=== PATIENT | female | born 1955 | race Caucasian/White ===

== ENCOUNTER 2016-11-05 05:40 | Day surgery (SDC) | payer OTHER ==
--- NOTE | 2016-11-04 15:48 | GHP ---
[f rep st] PREOP HISTORY AND PHYSICAL DATE OF ADMISSION: 11/05/2016 CHIEF COMPLAINT: The patient presented to [facility] in September of 2016 with a chief complaint of a left bunion deformity. It had been progressive over time. She had been wearin g wider shoes, padding, decreased activity for years. Finally the 2nd toe was starting to cross over the great toe, causing significant pain and getting interdigital corn on the 2nd toe which is causin g a lot of pain also. At this point, she wanted it corrected on a permanent basis. She is a 61-year-old female, breast cancer survivor 12 years. Generally in excellent health. Outsid e of the surgery she takes levothyroxine for low thyroid and Cymbalta for a stomach problem. Outside of that she takes no other prescription medications. Takes a multivitamin. ALLERGIES: She has no known drug allergies. FAMILY HISTORY: Positive family history of bunion deformity on her maternal side. SOCIAL HISTORY: Denies ever using tobacco products. Alcohol use is less than 2 ounces per week. REVIEW OF SYSTEMS: In our discussion preoperatively she was alert and oriented. Not having any diff iculties with vision, hearing, nasal or throat problems. She denied any cardiac arrhythmias, chest p ain, shortness of breath, with extra exercise activity. She denies any GI, , neurologic, dermatolo gic, or other musculoskeletal problems. PHYSICAL EXAMINATION: The pulses show 2/4 on the dorsal and posterior tibial arteries. Capillary fl ow was less than 5 seconds to the digits x10. Minimal varicosities and no edema at either extremity noted preoperatively. Neurologic evaluation: Sharp dull, light touch, proprioception all intact and symmetric to the digit al level. She had normal temperature, texture, and turgor, and normal hair distribution of both lowe r extremities. No evidence of fungal infection on the nails. They are slightly ingrown on the hallu x nails with minimal dystrophic changes. Musculoskeletal evaluation showed 5/5 manual muscle testing to the extrinsic as well as intrinsic muscles of both extremities with no evidence of weakness or lo ss of strength. She has a minor splay foot deformity on the left side with a medially deviated 1st m etatarsal, laterally deviated hallux on the great toe. She had pain-free range of motion of the ankl e, subtalar, metatarsal joints on both feet. With dorsiflexion and plantar flexion of the left great toe joint there was pain and decreased range of motion in a corrected position. There was also crep itus noted. X-RAYS: Were taken, showed elevated intermetatarsal hallux abductus angles with spurring on oblique radiograph on the 1st metatarsal head. She does have intermetatarsal angles greater than 13 degrees, the hallux abductus angle is greater than 20 degrees. There appears to be some positional deformity on x-ray as well as structural deformity. ASSESSMENT: Hallux valgus deformity left. Progressive and severe. PLANNED PROCEDURE: Modified Santizo bunionectomy with osteotomy screw fixation and possible Nathaniel ost eotomy screw fixation. Preoperatively we discussed risks and complications, including residual pain, delayed healing. Marisela nt understood. Consent form was signed. She was given oral and written postoperative instructions, along with a prescription for Percocet 10/325 #30 one tab p.o. q. 4-6 hours p.r.n. postoperative roberta n as well as Phenergan 12.5 mg #30 one tab p.o. q 6 hours p.r.n. nausea postoperatively. She will be followed up x3 days postoperative at [facility] and all questions were answered preoperatively. She was given my cell phone number for 24 hour call postoperatively should she have any problems or questions. /[id number]/MODL
[2016-11-05] MEDS ORDERED: LIDOCAINE 1% 5 ML SDV ID PRN (06:18)
[2016-11-05] MEDS ORDERED: LR 1,000 ML IV ONE (06:18)
[2016-11-05] MEDS ORDERED: LIDOCAINE 1% 5 ML SDV ONE (06:21)
[2016-11-05] MEDS ORDERED: PROPOFOL 200 MG/20 ML VIAL ONE (06:53)
[2016-11-05] MEDS ORDERED: fentaNYL 100 MCG/2 ML INJ ONE (06:53)
[2016-11-05] MEDS ORDERED: PROPOFOL/EMULSION 500 MG/50 ML BOTTLE IV ONE (06:53)
[2016-11-05] MEDS ORDERED: LIDOCAINE 2% 5 ML SDV ONE (07:00)
[2016-11-05] MEDS ORDERED: MIDAZOLAM 2 MG/2 ML VIAL ONE (07:13)
[2016-11-05] MEDS ORDERED: BUPIVACAINE/EPI 0.25% 30 ML SDV ONE (07:20)
[2016-11-05] MEDS ORDERED: ceFAZolin 1 GM/5 ML SYR ONE (07:21)
[2016-11-05] MEDS ORDERED: DEXAMETHASONE 4 MG/ML VIAL ONE (07:43)
[2016-11-05] MEDS ORDERED: ONDANSETRON 4 MG/2 ML VIAL ONE (07:43)
[2016-11-05] MEDS ORDERED: CEFAZOLIN 1 GM/DEXTROSE/50 ML BAG IV ONE (09:01)
--- NOTE | 2016-11-05 10:45 | GOP ---
[f rep st] OPERATIVE REPORT DATE OF OPERATION: 11/05/2016 SURGEON: Gasper Butcher DPM ANESTHESIA: Kevin Ashley MD. MAC plus local infiltration of 10 cc of 0.25% Marcaine with epinep hrine in a Avila-type block. PREOPERATIVE DIAGNOSIS: Hallux valgus deformity, left foot. POSTOPERATIVE DIAGNOSIS: Hallux valgus deformity, left foot. PROCEDURE PERFORMED: FINDINGS: SPECIMENS: There were no specimens sent to pathology. ESTIMATED BLOOD LOSS: Less than 10 cc. DESCRIPTION OF PROCEDURE: The patient was taken to the operating room and placed in the supine posit ion. The first procedure was a modified Santizo bunionectomy with osteotomy and screw fixation. Aft er the Avila block and MAC anesthesia, the left lower extremity was elevated, prepped and draped in th e usual sterile OR fashion, achieving a sterile field about the entire distal aspect of the extremity . The foot was elevated and exsanguinated. Tourniquet was inflated to 250 mmHg. Total tourniquet t daniel was just under 1 hour. Attention was directed to the dorsal aspect of the left foot over the 1st metatarsophalangeal joint, where an approximately 3-4 inch linear incision was made medial to the extensor hallucis longus tendo n. Dissection was carried down to the level of the joint capsule, taking care to preserve the neurov ascular status to the area. Superficial vessels were clamped and bovied as necessary. The capsule w as entered via a single linear incision, reflected medially and laterally off the head of the metatar renée as well as the base of the proximal phalanx and the distal 3rd of the periosteum on the 1st metat arsal. The 1st intermetatarsal space was entered via sharp and blunt dissection. The adductor tendo n was identified at its attachment to the base of the proximal phalanx, and this was released sharply from its attachment. The toe could then be manually pulled over into a corrected position, very leda e position, and adequate lateral release was noted. Attention was then directed back to the 1st metatarsal head, where the medial eminence of the 1st met atarsal head was resected utilizing a bone saw. A 035 K wire was then placed through the metaphysis of the metatarsal, orienting the K wire such that it would slightly plantar flex the metatarsal upon osteotomy. A V or chevron-type osteotomy was then carried out with a slightly elongated dorsal wing. The metatarsal head was shifted laterally, impacted upon itself and held with the same 035 K wire a s temporary fixation. Utilizing AO technique, a single 2.4 mm OsteoMed screw was placed through the dorsal wing of the osteotomy and retrograded back into the metatarsal with excellent compression note d at the osteotomy. Redundant bone was removed medially. The K wire was removed from the operative site, and the area was rasped smooth medially and dorsally on the metatarsal. The great toe was take n through range of motion, deemed to be fairly anatomically aligned, but it was still pushing on the 2nd toe, so it was deemed necessary to do a secondary procedure, which was the Nathaniel osteotomy. The p eriosteum was reflected off the proximal phalanx medially and laterally. Again utilizing the bone sa w, an oblique wedge osteotomy was carried out with the apex proximal lateral on the proximal phalanx of the left great toe. This wedge of bone was removed from the operative site. A fracture reduction forceps was used to close the osteotomy, which swung the great toe away from the 2nd. Again utilizi ng AO technique, a single 2.4 mm OsteoMed screw was placed perpendicular to the osteotomy with excell ent compression noted. The great toe was taken through range of motion, deemed to be anatomically al igned, and it was no longer pushing on the 2nd toe. The area was flushed copiously with dilute antib iotic solution 3 different times. The sesamoidal apparatus was inspected multiple times for any dege neration or loose bone. There was a small loose bony fragment noted on the base of the proximal phal anx medially and this was removed. The great toe was taken through range of motion again and deemed to be anatomically aligned. Redundant capsule was then capsulotomized. The capsule was reapproximat ed utilizing 3-0 Vicryl in a simple interrupted suture. Periosteum was reapproximated utilizing 4-0 Vicryl in a simple interrupted suture. Subcu closure was carried out via 4-0 Vicryl in a horizontal mattress suture, and skin closure was carried out via 4-0 Prolene in a running subcuticular stitch. The incision was reinforced with Mastisol and half-inch Steri-Strips. Adaptic, sterile 4 x 4's, Klin g, and Coban were placed over the foot. Tourniquet was released and all digits immediately returned to a uniform pink color with normal capillary refill. The patient went into recovery in a satisfactory state with all vital signs stable. Her prognosis is excellent for rapid recovery. She will be followed up x3 days postop at [facility]. COMPLICATIONS: There were no complications. DRAINS: No drains were placed in the operative site. /[id number]/MODL
== END 2016-11-05 10:05 | disposition home or self-care (01) ==
LOC: FSGY 05:40
PROVIDERS: ATTEND Podiatrist
PROC: 0MQT0ZZ Repair Left Foot Bursa and Ligament, Open Approach (ICD-10-PCS; principal; 2016-11-05 07:15)
DX: M21.612 Bunion of left foot (principal); M20.12 Hallux valgus (acquired), left foot; E03.9 Hypothyroidism, unspecified; E78.2 Mixed hyperlipidemia; R53.83 Other fatigue; Z85.3 Personal history of malignant neoplasm of breast
CPT/HCPCS: 28292; C1769; C1713; J0690; J1100; J2250; J2405; J2704; J3010

== ENCOUNTER 2017-01-13 17:18 | Emergency (ER) | payer OTHER ==
[2017-01-13 17:31] VITALS: BP 136/82; PULSE 102; RESP 16; TEMP 100; O2SAT 95
--- NOTE | 2017-01-13 18:03 | UCPHY ---
H & P Time Seen by Provider: 01/13/17 17:50 Patient Type: Established HPI/ROS: This patient has a sore throat of moderate intensity associated with odynophagia started 2 days prior to arrival and is worsening. She reports some subjective fevers associated with this as well as slight myalgias. She also reports a mild cough. 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 ROS: No significant fatigue or other constitutional symptoms. HEENT: No ear pain. No facial pain. Pulmonary: No pleuritic pain. No shortness of breath. Cardiovascular: She reports no lower extremity swelling. GI: No vomiting and 7 point ROS is otherwise negative. 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 General: No acute distress HEENT: Nose: Clear discharge bilaterally. No sinus tenderness to percussion. Ears: External canals and tympanic membranes are clear with no erythema or abnormal findings bilaterally. Oropharynx: She has moderate uvular swelling and erythema. She has a slightly hoarse voice. No drooling or stridor. Eyes: Pupils equal and react to light. Extraocular motions are intact. Neck: Supple Lungs: Clear to auscultation bilaterally with no rales, rhonchi or wheeze. No respiratory distress. Cardiac: Regular rate and rhythm with no murmur gallop or rub Skin: No rash or pallor. Neuro: Alert with no focal deficits noted. Initial differential diagnosis: Uvulitis, strep pharyngitis, laryngitis, URI with cough Constitutional: Initial Vital Signs Temperature (C) 37.8 C 01/13/17 17:26 Heart Rate 102 H 01/13/17 17:26 Respiratory Rate 16 01/13/17 17:26 Blood Pressure 136/82 H 01/13/17 17:26 O2 Sat (%) 95 01/13/17 17:26 O2 Delivery Mode Room Air Allergies/Adverse Reactions: No Known Allergies Allergy (Verified 01/13/17 17:25) Home Medications: Medication Instructions Recorded Cymbalta 30 MG (*) 10/05/16 Flonase Nasal [place] 10/05/16 Levothyroxine 10/05/16 Amox Tr/K Clav (Augmentin) 500 mg PO TID #21 tab 01/13/17 [Augmentin 500/125 MG TAB (*)] Atorvastatin Calcium 01/13/17 Fluticasone Hfa 220 Mcg [Flovent 2 puffs IH DAILY #1 mdi 01/13/17 220 MCG Hfa MDI (*)] Gentamicin 0.3% [Gentak 0.3% Opht 2 drops OP TID #1 opht.btl 01/13/17 Drops] Medical Decision Making ED Course/Re-evaluation: Rapid strep is negative. Given patient's uvulitis will cover with a beta-lactam antibiotic. I counseled her regarding this. Also provided Flovent steroid inhaler for her laryngeal involvement. Discussion: Uvulitis without evidence of significant airway obstruction. I think that her mild laryngeal symptoms are consistent with her prior history of spasmodic laryngitis associated with URIs. - Data Points Laboratory Results: 01/13/17 01/13/17 Unknown 17:32 Group A Strep Screen NEGATIVE (NEGATIVE) Group A Strep DNA Pending Departure - Departure Disposition: Home, Routine, Self-Care Clinical Impression: Uvulitis, Cough Condition: Good Instructions: Uvulitis (ED) Additional Instructions: Diagnosis: 1. Uvulitis 2. Cough Plan: Humidifier Augmentin antibiotic Ibuprofen Tylenol for discomfort Restart your gentamicin eyedrops and take them for the next week. Start the Flovent steroid inhaler in addition if you have ongoing laryngeal symptoms beyond the next few days. Referrals: Emmett Horta MD [Primary Care Provider] - As per Instructions Prescriptions: Amox Tr/K Clav (Augmentin) [Augmentin 500/125 MG TAB (*)] 500 mg PO TID #21 tab Fluticasone Hfa 220 Mcg [Flovent 220 MCG Hfa MDI (*)] 2 puffs IH DAILY #1 mdi Gentamicin 0.3% [Gentak 0.3% Opht Drops] 2 drops OP TID #1 opht.btl - PQRS PQRS Measurement: NA
== END 2017-01-13 18:08 | disposition home or self-care (01) ==
LOC: CED 17:18
DX: K12.2 Cellulitis and abscess of mouth (principal); R05 Cough; E03.9 Hypothyroidism, unspecified
CPT/HCPCS: 87880-PO; 99214-PO; G0463-PO